=== PATIENT | female | born 1955 | race Caucasian/White ===

== ENCOUNTER 2017-02-10 17:32 | Emergency (ER) | payer BC ==
[2017-02-10 17:54] VITALS: BP 134/86; PULSE 58; RESP 16; TEMP 97.5; O2SAT 97
[2017-02-10] MEDS ORDERED: PROPARACAINE 0.5% 15 ML OPHT DROP ONE (19:11)
--- NOTE | 2017-02-10 19:18 | EDPHY ---
H & P Stated Complaint: ? subconjunctival hemorrhage/blister L eye;no known injury Time Seen by Provider: 02/10/17 19:03 HPI/ROS: CHIEF COMPLAINT: eye bleeding HISTORY OF PRESENT ILLNESS: Patient is a 61-year-old female who comes to the emergency department complaining of blood in her left eye. She developed a subconjunctival hematoma 3 days ago and gradually increased until today. She had her vision is intact and unchanged. She wears glasses not contacts. She denies any trauma or injury. She denies pain. She denies drainage. She has been told by her eye doctor that she has slightly high intra-ocular pressures in the past. No fevers. REVIEW OF SYSTEMS: Constitutional: denies: chills, fever, recent illness, recent injury EENTM: See HPI Respiratory: denies: cough, shortness of breath Cardiac: denies: chest pain, irregular heart rate, lightheadedness, palpitations Gastrointestinal/Abdominal: denies: abdominal pain, diarrhea, nausea, vomiting, blood streaked stools Genitourinary: denies: dysuria, frequency, hematuria, pain Musculoskeletal: denies: joint pain, muscle pain Skin: denies: lesions, rash, jaundice, bruising Neurological: denies: headache, numbness, paresthesia, tingling, dizziness, weakness Hematologic/Lymphatic: denies: blood clots, easy bleeding, easy bruising Immunologic/allergic: denies: HIV/AIDS, transplant EXAM: GENERAL: Well-appearing, well-nourished and in no acute distress. HEAD: Atraumatic, normocephalic. EYES: Left subconjunctival hematoma with small clotting in the nasal aspect. Retina appears normal. Vision intact. Intra-ocular pressure 20. Pupils equal round and reactive to light, extraocular movements intact, sclera anicteric ENT: TMs normal, nares patent, oropharynx clear without exudates. Moist mucous membranes. NECK: Normal range of motion, supple without lymphadenopathy or JVD. LUNGS: Breath sounds clear to auscultation bilaterally and equal. No wheezes rales or rhonchi. HEART: Regular rate and rhythm without murmurs, rubs or gallops. ABDOMEN: Soft, nontender, normoactive bowel sounds. No guarding, no rebound. No masses appreciated. BACK: No CVA tenderness, no spinal tenderness, step-offs or deformities EXTREMITIES: Normal range of motion, no pitting or edema. No clubbing or cyanosis. NEUROLOGICAL: Cranial nerves II through XII grossly intact. Normal speech, normal gait. 5/5 strength, normal movement in all extremities, normal sensation PSYCH: Normal mood, normal affect. SKIN: Warm, dry, normal turgor, no visible rashes or lesions. Source: Patient Exam Limitations: No limitations - Personal History Current Tetanus Diphtheria and Acellular Pertussis (TDAP): Yes - Medical/Surgical History Hx Asthma: No Hx Chronic Respiratory Disease: No Hx Diabetes: No Hx Cardiac Disease: No Hx Renal Disease: No Hx Cirrhosis: No Other PMH: HTN. Gatroparesis. thyroid tumors under evaluation - Family History Significant Family History: No pertinent family hx - Social History Smoking Status: Never smoked Alcohol Use: Sober Drug Use: None Constitutional: Initial Vital Signs Temperature (C) 36.4 C 02/10/17 17:50 Heart Rate 58 L 02/10/17 17:50 Respiratory Rate 16 02/10/17 17:50 Blood Pressure 134/86 H 02/10/17 17:50 O2 Sat (%) 97 02/10/17 17:50 O2 Delivery Mode Room Air Allergies/Adverse Reactions: codeine Allergy (Mild, Verified 02/10/17 17:54) Rash Home Medications: Medication Instructions Recorded Erythromycin Base [RAMÍREZ-TAB 250 MG 250 mg PO 02/10/17 (RX)] Montelukast Sodium [Singulair 4 mg 4 mg PO 02/10/17 (*)] Omeprazole 40 mg PO 02/10/17 Ondansetron Odt [Zofran Odt 4 mg 4 mg PO PRN PRN 02/10/17 (*)] Simvastatin [Zocor] 20 mg PO 02/10/17 Valsartan [Diovan (*)] 40 mg PO 02/10/17 Medical Decision Making ED Course/Re-evaluation: Patient is well appearing. We discussed her hematoma, expected course and indications for returning. She has a follow-up appointment with her eye doctor in [place] next week. She declines further workup or testing. She states that she does have a very mild headache but is not concerned about it. She does use Restasis for chronic dry eyes and I encouraged her to continue doing this. Differential Diagnosis: Partial list of the Differential diagnosis considered include but were not limited to; subconjunctival hematoma, conjunctivitis and although unlikely based on the history and physical exam, I also considered glaucoma, retinal detachment, hemorrhage, ischemia, migraine, CVA. I discussed these differential diagnoses and the plan with the patient as well as the usual and expected course. The patient understands that the diagnosis is provisional and that in medicine we are not always correct and that further workup is often warranted. Usual and customary warnings were given. All of the patient's questions were answered. The patient was instructed to return to the emergency department should the symptoms at all worsen or return, otherwise to followup with the physician as we discussed. Departure - Departure Disposition: Home, Routine, Self-Care Clinical Impression: Subconjunctival hemorrhage of left eye Condition: Fair Instructions: Subconjunctival Hemorrhage (ED) Referrals: LAMBERTO SILVER [Other] - As per Instructions
== END 2017-02-10 19:36 | disposition home or self-care (01) ==
DX: H11.32 Conjunctival hemorrhage, left eye (principal); I10 Essential (primary) hypertension